=== PATIENT | female | born 1970 | race Caucasian/White ===

== ENCOUNTER 2016-03-02 12:36 | Emergency (ER) | payer MEDICAID, OTHER ==
[2016-03-02 13:37] VITALS: BP 106/78
[2016-03-02] MEDS ORDERED: Ciprofloxacin TAB* 500 MG PO ONE (15:04)
[2016-03-02] MEDS ORDERED: metroNIDAZOLE TAB* 250 MG PO ONE (15:04)
[2016-03-02] MEDS ORDERED: Ketorolac INJ* 30 MG/ML 1 ML VIAL IM ONE (15:04)
--- NOTE | 2016-03-02 15:10 | UC ---
Abdominal Pain Female HPI - HPI Summary HPI Summary: 45 yo female with left sided abd pain that started at 10PM yesterday Pain waxes and wanes no f/c no UTI symptoms Hx of diverticulitis x 6 no hx urolithiasis - History of Current Complaint Chief Complaint: UCAbdominalPain Stated Complaint: LEFT SIDE ABDOMINAL PAIN Time Seen by Provider: 03/02/16 14:19 Hx Obtained From: Patient Hx Last Menstrual Period: no menses for 2 years Onset/Duration: Sudden Onset, Lasting Days Severity Initially: Moderate Severity Currently: Moderate Pain Intensity: 7 Pain Scale Used: 0-10 Numeric Location: Discrete At: LLQ Radiates: No Character: Sharp Aggravating Factor(s): Movement Alleviating Factor(s): Nothing Associated Signs and Symptoms: Negative: Diaphoresis, Fever, Cough, Chest Pain, Dizzy, Back Pain, Constipation, Blood in Stool, Urinary Symptoms, Decreased Appetite, Vaginal Bleeding, Vaginal Discharge, Nausea, Vomiting, Diarrhea Allergies/Adverse Reactions: Allergies Allergy/AdvReac Type Severity Reaction Status Date / Time Morphine Allergy Pain Verified 03/02/16 13:37 Penicillins Allergy Unknown Verified 03/02/16 13:37 Reaction Details PMH/Surg Hx/FS Hx/Imm Hx Previously Healthy: Yes Respiratory History Of: Reports: COPD, Asthma - Surgical History Surgical History: Yes Surgery Procedure, Year, and Place: appy, c-sect , cholecystectomy - Family History Known Family History: Positive: Hypertension, Other - no FH of kidney stones - Social History Alcohol Use: None Substance Use Type: None Smoking Status (MU): Former Smoker Type: Cigarettes Amount Used/How Often: 1/2 PPD Length of Time of Smoking/Using Tobacco: 30 Years Have You Smoked in the Last Year: Yes When Did the Patient Quit Smoking/Using Tobacco: 01/19/15 Household Exposure Type: Cigarettes - Immunization History Most Recent Influenza Vaccination: Not the Season Review of Systems Constitutional: Negative Skin: Negative Eyes: Negative ENT: Negative Respiratory: Negative Cardiovascular: Negative Gastrointestinal: Abdominal Pain Genitourinary: Negative Motor: Negative Neurovascular: Negative Musculoskeletal: Negative Neurological: Negative Psychological: Negative All Other Systems Reviewed And Are Negative: Yes Physical Exam Triage Information Reviewed: Yes Appearance: Well-Appearing, No Pain Distress, Well-Nourished Vital Signs: Initial Vital Signs Temp 99.0 F 03/02/16 13:34 Pulse 92 03/02/16 13:34 Resp 14 03/02/16 13:34 BP 106/78 03/02/16 13:34 Pulse Ox 97 03/02/16 13:34 Vital Signs Reviewed: Yes Eyes: Positive: Conjunctiva Clear ENT: Positive: Hearing grossly normal, Pharynx normal. Negative: Nasal congestion, Nasal drainage, Trismus, Muffled/hoarse voice Neck: Positive: Supple Respiratory: Positive: Lungs clear, Normal breath sounds, No respiratory distress, No accessory muscle use. Negative: Respiratory distress, Decreased breath sounds Cardiovascular: Positive: RRR, No Murmur. Negative: Tachycardia, Bradycardia Abdomen Description: Positive: Soft. Negative: Nontender - LLQtender, Bruit, CVA Tenderness (R), CVA Tenderness (L), Distended, Guarding, Pulsatile Mass, Splenomegaly Bowel Sounds: Positive: Present Musculoskeletal: Positive: ROM Intact, No Edema Neurological Exam: Normal Neurological: Positive: Alert Psychological Exam: Normal Skin Exam: Normal Re-Evaluation - Re-Evaluation First Eval Re-Evaluation Time: 16:00 Change: Improved - decreased pain/informed of CT results Abd Pain Female Course/Dx - Differential Dx/Diagnosis Provider Diagnoses: acute diverticulitis Discharge - Discharge Plan Condition: Stable Disposition: HOME Prescriptions: Ciprofloxacin TAB* [Cipro Tab*] 750 mg PO BID #14 tab HYDROcodone/ACETAMIN 5-325 MG* [Ringoes 5-325 TAB*] 1 tab PO Q4H PRN #8 tab MDD 4 PRN Reason: Pain Metronidazole [Flagyl 500 MG TAB] 500 mg PO QID #28 tab Patient Education Materials: Diverticulitis (ED) Referrals: JOSSELYN Lucas [Primary Care Provider] - 2 Days Additional Instructions: to er for new or worsening symptoms
--- NOTE | 2016-03-02 15:51 | RAD ---
INDICATION: LEFT lower quadrant pain and hematuria. Post appendectomy, cholecystectomy, . History of diverticulitis in June 2015. COMPARISON: January 07, 2011 CT. TECHNIQUE: Multidetector CT images were obtained from the lung bases to the ischial tuberosities. Evaluation of the viscera is limited without IV contrast. Multiplanar reformation. REPORT: The visualized lung bases are remarkable for emphysema. Minimal peripheral alveolar opacity at the anterior and lateral basal segments of the RIGHT lower lobe may represent atelectasis or possibly inflammatory infiltrate. Post cholecystectomy. Negative for biliary dilatation. 19.4 cm cephalocaudal liver increased in size compared with the prior exam. No focal hepatic lesions evident. Negative for decreased hepatic density relative to the spleen to indicate fatty infiltration. Unremarkable pancreas and spleen. Moderate perienteric inflammatory change at the level of the proximal sigmoid colon seen in association with colonic wall thickening and diverticula highly suspicious for acute diverticulitis. Associated trace LEFT lower quadrant free fluid. Negative for free air. Unremarkable small bowel loops. Negative for hernias. Normal adrenal glands. Negative for urolithiasis or hydronephrosis. Unremarkable moderately distended urinary bladder. No suspicious finding of the leftward deviated anteverted uterus. Bilateral pelvic surgical clips likely representing tubal ligation clips. Suggestion of small calcified RIGHT inguinal lymph nodes. Negative for lymphadenopathy with assessment limited without IV contrast. Calcific plaque of the abdominal aorta and common iliac arteries. Negative for aortoiliac aneurysm. Physiologic partial distention of the IVC. Negative for suspicious focal osseous lesions. IMPRESSION: 1. The constellation of findings is most consistent with acute sigmoid diverticulitis. Negative for perienteric abscess. Interval follow-up suggested after therapy to exclude an underlying neoplastic lesion. 2. Negative for obstructive uropathy. 3. Hepatomegaly. 4. Minimal peripheral alveolar opacity at the anterior and lateral basal segments of the RIGHT lower lobe may represent atelectasis or possibly inflammatory infiltrate.
== END 2016-03-02 16:10 | disposition home or self-care (01) ==
LOC: UCCORT 12:36
DX: K57.32 Diverticulitis of large intestine without perforation or abscess without bleeding (principal); R16.0 Hepatomegaly, not elsewhere classified; J43.9 Emphysema, unspecified; J45.909 Unspecified asthma, uncomplicated; Z90.49 Acquired absence of other specified parts of digestive tract; Z87.891 Personal history of nicotine dependence; Z88.5 Allergy status to narcotic agent; Z88.0 Allergy status to penicillin
CPT/HCPCS: 74176; 96372; 99212; A9270-GY; G0463; J1885

== ENCOUNTER 2017-09-01 10:12 | Emergency (ER) | payer OTHER ==
[2017-09-01 12:09] VITALS: BP 121/59
--- NOTE | 2017-09-01 12:23 | UC ---
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 Pain in her hands legs thighs is been going on for several days now no injury. Patient also complains of left shoulder pain that has been worse for the past several days she has a history of shoulder injury from skiing as a teenager. 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 Patient denies nausea vomiting diarrhea fevers chills night sweats or weight loss. Patient is a past cigarette smoker - History of Current Complaint Chief Complaint: UCLowerExtremity Stated Complaint: LFT SHOULDER INJURY/CRAMPING LEGS/HANDS *3DAYS Time Seen by Provider: 09/01/17 12:13 Hx Obtained From: Patient Hx Last Menstrual Period: no menses for 2 years ?: No Onset/Duration: Gradual Onset, Lasting Days, Still Present Timing: Constant Location Of Pain: Is Diffuse Pain Intensity: 6 Pain Scale Used: 0-10 Numeric Character: Aching - crampy Aggravating Factor(s): Nothing Alleviating Factor(s): OTC Meds - ibuprofen Associated Signs And Symptoms: Positive: Negative Related History: Dominant Hand Right - Allergies/Home Medications Allergies/Adverse Reactions: Allergies Allergy/AdvReac Type Severity Reaction Status Date / Time morphine Allergy Pain Verified 09/01/17 12:08 Penicillins Allergy Unknown Verified 09/01/17 12:08 Reaction Details Home Medications: Home Medications Ibuprofen TAB* [Advil TAB*] 400 mg PO Q6H PRN 09/01/17 [History Confirmed ] PMH/Surg Hx/FS Hx/Imm Hx Previously Healthy: Yes - Surgical History Surgical History: Yes Surgery Procedure, Year, and Place: appy, c-sect , cholecystectomy - Family History Known Family History: Positive: Hypertension, Other - no FH of kidney stones - Social History Occupation: Employed Full-time Lives: With Family Alcohol Use: Occasionally Substance Use Type: None Smoking Status (MU): Heavy Every Day Tobacco Smoker Type: Cigarettes Amount Used/How Often: 1/2 PPD Length of Time of Smoking/Using Tobacco: 30 Years Have You Smoked in the Last Year: Yes When Did the Patient Quit Smoking/Using Tobacco: 01/19/15 Household Exposure Type: Cigarettes - Immunization History Most Recent Influenza Vaccination: Not the Season Review of Systems Constitutional: Negative Skin: Negative Eyes: Negative ENT: Negative Respiratory: Negative Cardiovascular: Negative Gastrointestinal: Negative Genitourinary: Negative Motor: Negative Neurovascular: Negative Musculoskeletal: Arthralgia - general body aches but worse left shoulder, Myalgia - thighs, calfs, hands Neurological: Negative Psychological: Negative Is Patient Immunocompromised?: No All Other Systems Reviewed And Are Negative: Yes Physical Exam Triage Information Reviewed: Yes Appearance: Ill-Appearing - appears older than stated age, Pain Distress - mild , Thin Vital Signs: Initial Vital Signs Temp 99.3 F 09/01/17 12:00 Pulse 98 09/01/17 12:00 Resp 18 09/01/17 12:00 BP 121/59 09/01/17 12:00 Pulse Ox 96 09/01/17 12:00 Vital Signs Reviewed: Yes Eye Exam: Normal Eyes: Positive: Conjunctiva Clear ENT Exam: Normal ENT: Positive: Normal ENT inspection, Hearing grossly normal, Pharynx normal, Uvula midline. Negative: Nasal congestion, TMs normal, Trismus, Muffled voice, Hoarse voice, Dental tenderness, Sinus tenderness Dental Exam: Normal Neck exam: Normal Neck: Positive: Supple, Nontender Respiratory Exam: Normal Respiratory: Positive: Chest non-tender, Lungs clear, Normal breath sounds, No respiratory distress, No accessory muscle use Cardiovascular Exam: Normal Cardiovascular: Positive: RRR, No Murmur, Pulses Normal, Brisk Capillary Refill Musculoskeletal Exam: Normal Musculoskeletal: Positive: Strength Intact, ROM Intact, No Edema Neurological Exam: Normal Neurological: Positive: Alert, Muscle Tone Normal Psychological Exam: Normal Skin Exam: Normal Diagnostics - Laboratory Diagnostic Studies Completed/Ordered: ua--+1, blood sg<1.005 Shoulder Course/Dx - Course Assessment/Plan: Patient may continue Tylenol and ibuprofen for pain. Will draw labs check Lyme serology. Referred to Dr. Pagan for management of chronic left shoulder pain. Patient wishes to return to work tomorrow - Differential Dx/Diagnosis Provider Diagnoses: Left shoulder pain, diffuse myalgias Discharge - Sign-Out/Discharge Documenting (check all that apply): Discharge/Admit/Transfer - Discharge Plan Condition: Stable Disposition: HOME Patient Education Materials: Acetaminophen (By mouth), Ibuprofen (By mouth), How to Stop Smoking (ED), Hematuria (ED), Shoulder Pain (ED) Forms: *Work Release Referrals: Nayeli Garcia MD [Primary Care Provider] - 1 Week Donavan Pagan MD [Medical Doctor] - 3 Days - Billing Disposition and Condition Condition: STABLE Disposition: Home
[2017-09-02 10:20] LABS: Hematocrit 44 % (35-47); Hemoglobin 14.9 g/dl (12.0-16.0); Mean Corpuscular HGB Conc 34 g/dl (31-36); Mean Corpuscular Hemoglobin 32 pg (27-31); Mean Corpuscular Volume 94 fL (80-97); Red Blood Count 4.65 10^6/ul (4.00-5.40); Red Cell Distribution Width 15 % (10.5-15); White Blood Count 11.4 10^3/ul (3.5-10.8)
[2017-09-02 10:29] LABS: EGFR Non-African American 120.5 (>60)
[2017-09-02 11:16] LABS: Monocytes % 5 % (0-7)
--- NOTE | 2017-09-03 07:36 | UC ---
- Progress Note Progress Note: PLEASE CALL PATIENT. RANDOM GLUCOSE IS APPROACHING DIABETIC LEVELS. FOLLOW-UP WITH PCP. - KENNY SAMSON MD. Discharge - Sign-Out/Discharge Documenting (check all that apply): Post-Discharge Follow Up - Discharge Plan Condition: Stable Disposition: HOME Patient Education Materials: Acetaminophen (By mouth), Ibuprofen (By mouth), How to Stop Smoking (ED), Hematuria (ED), Shoulder Pain (ED) Forms: *Work Release Referrals: Nayeli Garcia MD [Primary Care Provider] - 1 Week Donavan Pagan MD [Medical Doctor] - 3 Days - Billing Disposition and Condition Condition: STABLE Disposition: Home
== END 2017-09-01 12:54 | disposition home or self-care (01) ==
LOC: UCCORT 10:12
DX: M25.512 Pain in left shoulder (principal); M79.1 Myalgia; X50.0XXA Overexertion from strenuous movement or load, initial encounter; Y93.E9 Activity, other interior property and clothing maintenance; Y92.008 Other place in unspecified non-institutional (private) residence as the place of occurrence of the external cause; Y99.0 Civilian activity done for income or pay; Z87.891 Personal history of nicotine dependence; Z88.0 Allergy status to penicillin; Z88.5 Allergy status to narcotic agent
CPT/HCPCS: 36415; 80053; 81003; 85025; 86618; 87086; 99212; G0463

== ENCOUNTER 2018-05-20 12:55 | Emergency (ER) | payer OTHER ==
[2018-05-20 14:00] VITALS: BP 92/68
--- NOTE | 2018-05-20 14:40 | UC ---
Respiratory Complaint HPI - HPI Summary HPI Summary: Pt c/o bilateral lower rib and back pain with deep breaths and with palpation. Pt reports that she recently had an URI and does do repetitive lefting and moving of lightweight objects. Pt denies injury, fever, or recent weightloss. - History of Current Complaint Chief Complaint: UCRespiratory Stated Complaint: HX OF COPD - LUNG PAIN Time Seen by Provider: 05/20/18 14:30 Hx Obtained From: Patient Hx Last Menstrual Period: no menses for 2 years ?: No Onset/Duration: Sudden Onset, Lasting Weeks, Still Present Timing: Constant Severity Initially: Mild Severity Currently: Mild Pain Intensity: 5 Aggravating Factors: Deep Breaths Associated Signs And Symptoms: Positive: Negative - Risk Factors Pulmonary Embolism Risk Factors: Smoking Cardiac Risk Factors: Smoking Pseudomonas Risk Factors: Negative Tuberculosis Risk Factors: Smoking - Allergies/Home Medications Allergies/Adverse Reactions: Allergies Allergy/AdvReac Type Severity Reaction Status Date / Time morphine Allergy Pain Verified 05/20/18 13:53 Penicillins Allergy Unknown Verified 05/20/18 13:53 Reaction Details Home Medications: Home Medications Albuterol 2.5MG/3ML (0.083%)* [Ventolin 2.5 MG/3 ML NEB.PALAK*] 2.5 mg INH Q6H PRN 05/20/18 [History Confirmed 05/20/18] PMH/Surg Hx/FS Hx/Imm Hx Previously Healthy: Yes Respiratory History: COPD - Surgical History Surgical History: Yes Surgery Procedure, Year, and Place: appy, c-sect , cholecystectomy - Family History Known Family History: Positive: Hypertension, Other - no FH of kidney stones - Social History Occupation: Employed Full-time Lives: With Family Alcohol Use: Occasionally Substance Use Type: None Smoking Status (MU): Light Every Day Tobacco Smoker Type: Cigarettes Amount Used/How Often: 6 cigarettes daily Length of Time of Smoking/Using Tobacco: 30 Years Have You Smoked in the Last Year: Yes When Did the Patient Quit Smoking/Using Tobacco: 01/19/15 Household Exposure Type: Cigarettes - Immunization History Most Recent Influenza Vaccination: Not the Season Vaccination Up to Date: No Review of Systems All Other Systems Reviewed And Are Negative: Yes Constitutional: Positive: Negative Skin: Positive: Negative Eyes: Positive: Negative ENT: Positive: Negative Respiratory: Positive: Negative Cardiovascular: Positive: Negative Gastrointestinal: Positive: Negative Motor: Positive: Negative Neurovascular: Positive: Negative Musculoskeletal: Positive: Myalgia - lower posterior ribs/back Neurological: Positive: Negative Psychological: Positive: Negative Is Patient Immunocompromised?: No Physical Exam Triage Information Reviewed: Yes Appearance: Well-Appearing Vital Signs: Initial Vital Signs Temp 97.9 F 05/20/18 13:55 Pulse 81 05/20/18 13:55 Resp 18 05/20/18 13:55 BP 92/68 05/20/18 13:55 Pulse Ox 97 05/20/18 13:55 Vital Signs Reviewed: Yes Eye Exam: Normal ENT Exam: Normal Dental Exam: Normal Neck exam: Normal Respiratory: Positive: Normal breath sounds, No respiratory distress Cardiovascular Exam: Normal Musculoskeletal: Positive: Other: - c/o pain with palpation to back/ribs 8-12 Neurological Exam: Normal Psychological Exam: Normal Skin Exam: Normal Respiratory Course/Dx - Differential Dx/Diagnosis Differential Diagnosis/HQI/PQRI: Bronchitis, Exacerbation Of COPD, Influenza Provider Diagnosis: Costochondritis Discharge - Sign-Out/Discharge Documenting (check all that apply): Patient Departure All imaging exams completed and their final reports reviewed: No Studies - Discharge Plan Condition: Stable Disposition: HOME Prescriptions: predniSONE TAB* [Deltasone 10 MG TAB*] 30 mg PO DAILY #12 tab Patient Education Materials: Costochondritis (ED) Referrals: Nayeli Garcia MD [Primary Care Provider] - If Needed - Billing Disposition and Condition Condition: STABLE Disposition: Home
== END 2018-05-20 14:46 | disposition home or self-care (01) ==
LOC: UCCORT 12:55
DX: M94.0 Chondrocostal junction syndrome [Tietze] (principal); J44.9 Chronic obstructive pulmonary disease, unspecified; F17.210 Nicotine dependence, cigarettes, uncomplicated; Z79.899 Other long term (current) drug therapy; Z88.0 Allergy status to penicillin; Z88.5 Allergy status to narcotic agent
CPT/HCPCS: 99212; G0463

== ENCOUNTER 2022-05-03 07:42 | Observation (INO) ==
[2022-05-03] MEDS ORDERED: Albuterol/Ipratropium NEB.SOL (2.5/0.5 MG) 3 ML NEB.SOLN INH ONE (07:50)
[2022-05-03] MEDS ORDERED: Acetylcysteine INHALATION SOL 200 MG/ML NEB.SOLN 10 ML INH ONE (07:50)
[2022-05-03 08:23] LABS: ABS Basophils 0.1 10^3/ul (0-0.2); ABS Eosinophils 0.2 10^3/ul (0-0.6); ABS Lymphocytes 2.2 10^3/ul (1.0-4.8); ABS Monocytes 0.9 10^3/ul (0-0.8); ABS Neutrophils 6.9 10^3/ul (1.5-7.7); Eosinophil % 1.5 %; Hematocrit 44 % (35-47); Hemoglobin 14.8 g/dL (12.0-16.0); Lymphocyte % 21.4 %; Mean Corpuscular HGB Conc 34 g/dL (31-36); Mean Corpuscular Hemoglobin 32 pg (27-31); Mean Corpuscular Volume 97 fL (80-97); Mean Platelet Volume 8.4 fL (7.4-10.4); Nucleated Red Blood Cells % 0.1; Platelet Count 189 10^3/uL (150-450); Red Blood Count 4.56 10^6 /uL (3.70-4.87); Red Cell Distribution Width 15 % (10-15); White Blood Count 10.3 10^3/uL (3.5-10.8)
[2022-05-03 08:40] LABS: INR 0.98 (0.88-1.18)
[2022-05-03 08:51] LABS: Albumin 3.6 g/dL (3.2-5.2); Albumin/Globulin Ratio 1.8 (1-3); C Reactive Protein 1.82 mg/L (<8.01); Calcium 8.7 mg/dL (8.6-10.3); Creatinine, Serum 0.47 mg/dL (0.51-0.95); Magnesium 1.6 mg/dL (1.9-2.7); Phosphorus 3.2 mg/dL (2.5-5.0); Total Bilirubin 0.5 mg/dL (0.2-1.0); Total Protein 5.6 g/dL (6.4-8.9); eGFR CKD-EPI 114.5 (>60)
[2022-05-03] MEDS ORDERED: Iohexol 350 (CONTRAST) 500 ML MDV IV ONE (09:03)
[2022-05-03 09:40] LABS: High Sensitivity Troponin 1 Hr 21 pg/mL (<15)
[2022-05-03] MEDS ORDERED: Azithromycin 500 mg/250 ml NS 500 MG/250 ML BAG IVPB ONE (10:28)
[2022-05-03] MEDS ORDERED: cefTRIAXone 1 gm/50 mL D5W 1 GM/50 ML BAG IV ONE (10:28)
[2022-05-03] MEDS ORDERED: Albuterol HFA INHALER 8 gm MDI INH PRN (12:24)
[2022-05-03] MEDS ORDERED: Albuterol 2.5mg/3 ml (0.083%) NEB.SOLN INH PRN (12:24)
[2022-05-03] MEDS ORDERED: Magnesium Sulfate IV 1GM/100ML 1 GM/100 ML BAG IV ONE (12:51)
[2022-05-03] MEDS: Heparin 5000 UNITS/ML 1 mL VIAL SUBCUT SCH (13:31)
[2022-05-03] MEDS: methylPREDNISolone SOD SUCC 40 mg/ml 1 ml VIAL IV SCH (13:31)
[2022-05-03] MEDS: Mometasone/Formoter 100/5 MDI INH SCH (20:05)
[2022-05-04] MEDS: Heparin 5000 UNITS/ML 1 mL VIAL SUBCUT SCH ×2 (00:13→06:34)
[2022-05-04] MEDS: methylPREDNISolone SOD SUCC 40 mg/ml 1 ml VIAL IV SCH (01:30)
[2022-05-04 05:09] LABS: ALT 69 U/L (7-52); Albumin 3.8 g/dL (3.2-5.2); Albumin/Globulin Ratio 1.7 (1-3); Alkaline Phosphatase 89 U/L (35-149); Globulin 2.2 g/dL (2-4)
[2022-05-04 05:39] LABS: Hepatitis B Surface Antigen Nonreactive (Nonreactive)
[2022-05-04 05:43] LABS: Hepatitis A Ab IgM Negative (Negative)
[2022-05-04 05:44] LABS: Hepatitis B Core IgM Nonreactive (Nonreactive)
[2022-05-04 05:56] LABS: Hepatitis C Antibody Negative (Negative)
[2022-05-04] MEDS: Mometasone/Formoter 100/5 MDI INH SCH (06:51)
[2022-05-04 07:02] LABS: Direct Bilirubin 0.1 mg/dL (0.03-0.18); Indirect Bilirubin 0.3 mg/dL (0.3-1.0); Total Bilirubin 0.4 mg/dL (0.2-1.0)
[2022-05-04] MEDS ORDERED: SPIRIVA Respimat (tiotropium) 2.5 mcg/inh Inhaler INH SCH (09:00)
[2022-05-04] MEDS ORDERED: cefTRIAXone 1 gm/50 mL D5W 1 GM/50 ML BAG IV SCH (10:00)
[2022-05-04] MEDS ORDERED: Azithromycin 500 mg/250 ml NS 500 MG/250 ML BAG IVPB SCH (10:30)
[2022-05-04 10:43] VITALS: BP 100/80
== END 2022-05-04 12:00 | disposition home or self-care (01) ==
LOC: ED 07:42 → EDHOLD 07:42 → SUATTDRO 11:27 → EDHOLD 05-04 10:42
PROVIDERS: ADMIT Internal Medicine; ATTEND Internal Medicine